=== PATIENT | male | born 1945 | race Caucasian/White ===

== ENCOUNTER → 2019-04-07 | Outpatient (CLI) | payer BC, MEDICARE ==
[~2019-04-07] MED LIST: ASPIR 8181 MG PO; Z.0.LEVOTHYROXINE50 PO; Z.0.METOPROLOL TART2 PO; Z.0.ONGLYZA5 MG PO; Z.0.RAMIPRIL5 MG PO
--- NOTE | 2019-04-07 13:00 | Diagnostic Imaging Report ---
EXAMINATION: CHEST 2 VIEWS INDICATION: Persistent cough COMPARISON: None FINDINGS: LINES/TUBES:None LUNGS:Patchy airspace opacity at the left lung base partially silhouettes the left hemidiaphragm. PLEURA:No pleural effusion or pneumothorax. MEDIASTINUM:The cardiomediastinal silhouette appears normal in size and shape. Atherosclerotic calcifications of the thoracic aorta. BONES/SOFT TISSUES:No acute osseous injury. ABDOMEN:No free air under the diaphragm. IMPRESSION: Left lower lobe airspace opacity compatible with aspiration and/or pneumonia in the proper clinical setting. RECOMMENDATIONS: Follow-up chest radiograph in 6-8 weeks to assess for resolution and to exclude underlying mass lesion. Signed by: Rubia Rudd MD on 04/07/2019 12:57 PM
== END ==
LOC: RAD 12:08
PROVIDERS: ATTEND Family Medicine
DX: R05 Cough (principal)
CPT/HCPCS: 71046